=== PATIENT | female | born 1960 | race Caucasian/White ===

== ENCOUNTER → 2017-01-05 | Outpatient (CLI) | payer BC ==
[~2017-01-05] MED LIST: ASPI1TAB83 PO; CALC-354 PO; CYM/30 PO; DICL50TA3 PO; FEXO1TAB46 PO; GABA1CAP PO; NRN/600 PO
--- NOTE | 2017-01-06 12:38 | MAMMOGRAPHY REPORT ---
BILATERAL DIGITAL SCREENING MAMMOGRAM TOMOSYNTHESIS WITH CAD: 01/05/2017 CLINICAL HISTORY: Routine screening. Patient has no complaints. TECHNIQUE: Breast tomosynthesis in addition to standard 2D mammography was performed. Current study was also evaluated with a Computer Aided Detection (CAD) system. COMPARISON: Comparison is made to exams dated: 01/05/2016 mammogram, 01/01/2015 mammogram, 12/24/2013 ma mmogram, 09/28/2012 mammogram, 09/30/2011 mammogram, and 09/28/2011 mammogram - [facility] nter. BREAST COMPOSITION: There are scattered areas of fibroglandular density in both breasts. FINDINGS: The breast parenchymal pattern is similar to prior mammograms. No new suspicious mass, arc hitectural distortion or cluster of microcalcifications is seen. IMPRESSION: ACR BI-RADS CATEGORY 1: NEGATIVE There is no mammographic evidence of malignancy. A 1 year screening mammogram is recommended. The pa tient will receive written notification of the results. Approximately 10% of breast cancers are not detected with mammography. A negative mammographic report should not delay biopsy if a clinically suggestive mass is present. Jacey Howell M.D. ay/:01/05/2017 15:37:26 Target Trimmer: Bernice Wright, [facility] letter sent: Normal 1/2 BI-RADS Code: ACR BI-RADS Category 1: Negative
== END | disposition home or self-care (01) ==
LOC: C.MAMM 15:12
PROVIDERS: ATTEND Nurse Practitioner Family
DX: Z12.31 Encounter for screening mammogram for malignant neoplasm of breast (principal)

== ENCOUNTER → 2017-03-08 | Outpatient (CLI) | payer BC ==
[2017-03-08 12:57] LABS: BLOOD UREA NITROGEN 15 mg/dl (7-18); BUN/CREATININE RATIO 17.6 (10-20); CALCIUM 9.3 mg/dl (8.5-10.1); CARBON DIOXIDE 27 mmol/L (21-32); CHLORIDE 105 mmol/L (98-107); CREATININE 0.83 mg/dl (0.60-1.20); GLUCOSE 106 mg/dl (70-99); POTASSIUM 4.1 mmol/L (3.5-5.1); SODIUM 138 mmol/L (136-145)
[2017-03-08 13:07] LABS: CHOLESTEROL 232 mg/dl (0-200); CHOLESTEROL/HDL RATIO 3.3; HDL CHOLESTEROL 71 mg/dl; LDL CHOLESTEROL CALCULATED 145 mg/dl; TRIGLYCERIDES 82 mg/dl (0-150); VERY LOW DENSITY LIPOPROT CALC 16 mg/dl
== END | disposition home or self-care (01) ==
LOC: C.LABPVFM 07:29
PROVIDERS: ATTEND Nurse Practitioner Family
DX: Z13.220 Encounter for screening for lipoid disorders (principal); R73.01 Impaired fasting glucose; F41.9 Anxiety disorder, unspecified

== ENCOUNTER 2024-10-26 08:56 | Observation (INO) ==
--- NOTE | 2024-10-09 16:03 | PAT Medication Instructions ---
Medication Instructions Date of Service October 09, 2024 Home Medications Medication Instructions Recorded venlafaxine 75 mg capsule,extended 75 mg PO QAM #90 caps 01/23/24 release 24 hr buspirone 5 mg tablet 5 mg PO DAILY #30 tabs 04/30/24 chlorthalidone 25 mg tablet 25 mg PO QAM #90 tabs 05/09/24 diclofenac sodium 50 mg 50 mg PO DAILY #180 tabs 06/15/24 tablet,delayed release trazodone 50 mg tablet 50 - 100 mg (1 - 2 x 50 mg) PO HS 06/15/24 #180 tabs atorvastatin 10 mg tablet 10 mg PO QAM #90 tabs 06/25/24 venlafaxine 150 mg 150 mg PO QAM #90 caps 08/01/24 capsule,extended release 24 hr amlodipine 5 mg tablet 5 mg PO QAM #90 tabs 08/03/24 lidocaine 5 % topical patch 1 patch topical DAILY PRN pain #15 09/11/24 ea diazepam 5 mg tablet 5 mg PO .COMPLEX PRN anxiety #3 09/20/24 tabs pregabalin 100 mg capsule 100 mg PO BID #60 caps 09/20/24 aspirin 81 mg tablet 81 mg PO HS calcium carbonate 600 mg PO HS biotin 5,000 mcg disintegrating tablet 10,000 mcg PO QPM gingkgo 1 cap PO QPM cholecalciferol (vitamin D3) 125 mcg (5,000 unit) tablet (Vitamin D3) 125 mcg PO DAILY fexofenadine 180 mg tablet 180 mg PO QAM omeprazole 20 mg tablet,delayed release 20 mg PO QAM venlafaxine 75 mg capsule,extended release 24 hr 75 mg PO QAM clotrimazole-betamethasone 1 %-0.05 % topical cream 1 applic topical BID PRN buspirone 5 mg tablet 5 mg PO DAILY chlorthalidone 25 mg tablet 25 mg PO QAM diclofenac sodium 50 mg tablet,delayed release 50 mg PO DAILY trazodone 50 mg tablet 50 - 100 mg (1 - 2 x 50 mg) PO HS atorvastatin 10 mg tablet 10 mg PO QAM venlafaxine 150 mg capsule,extended release 24 hr 150 mg PO QAM amlodipine 5 mg tablet 5 mg PO QAM gabapentin 100 mg capsule 200 mg PO QAM gabapentin 600 mg tablet 600 mg PO DAILY PRN lidocaine 5 % topical patch 1 patch topical DAILY PRN diazepam 5 mg tablet 5 mg PO .COMPLEX PRN pregabalin 100 mg capsule 100 mg PO BID Continue as directed buspirone 5 mg tablet 5 mg PO DAILY gabapentin 600 mg tablet 600 mg PO DAILY PRN(if needed) diazepam 5 mg tablet 5 mg PO .COMPLEX PRN ASK your surgeon for instructions diclofenac sodium 50 mg tablet,delayed release 50 mg PO DAILY ASK your prescriber and surgeon aspirin 81 mg tablet 81 mg PO HS lidocaine 5 % topical patch 1 patch topical DAILY PRN (do NOT apply on or near surgical site) STOP taking 2 weeks before surgery (or as soon as possible if surgery is within 2 weeks) biotin 5,000 mcg disintegrating tablet 10,000 mcg PO QPM gingkgo 1 cap PO QPM STOP taking 24 hours before surgery clotrimazole-betamethasone 1 %-0.05 % topical cream 1 applic topical BID PRN DO NOT take the morning of surgery cholecalciferol (vitamin D3) 125 mcg (5,000 unit) tablet (Vitamin D3) 125 mcg PO DAILY fexofenadine 180 mg tablet 180 mg PO QAM chlorthalidone 25 mg tablet 25 mg PO QAM Take morning of surgery With a small sip of water, OTHERWISE NOTHING TO EAT OR DRINK AFTER MIDNIGHT: omeprazole 20 mg tablet,delayed release 20 mg PO QAM venlafaxine 75 mg capsule,extended release 24 hr 75 mg PO QAM atorvastatin 10 mg tablet 10 mg PO QAM venlafaxine 150 mg capsule,extended release 24 hr 150 mg PO QAM amlodipine 5 mg tablet 5 mg PO QAM gabapentin 100 mg capsule 200 mg PO QAM pregabalin 100 mg capsule 100 mg PO BID Take evening before surgery calcium carbonate 600 mg PO HS trazodone 50 mg tablet 50 - 100 mg (1 - 2 x 50 mg) PO HS pregabalin 100 mg capsule 100 mg PO BID Other Notes If you have any questions please call us at [phone] or [phone] or [phone] or [phone]
--- NOTE | 2024-10-12 10:56 | Anesthesiology Consultation ---
Date of Service October 12, 2024 Assessment & Plan (1) Encounter for pre-operative examination: Chart Review Chart Review: Acceptable Risk for Surgery and Patient seen in Pre Admission Testing Teaching & Discussion Pre-Anesthesia Teaching/Discussion Notes: Instructed NPO after midnight before surgery, except medications with 15 cc of water. Medication instructions provided according to the PAT guidelines. History Surgery Operation Date: 10/26/24 10:00 Proposed Procedures p L2-L3, L3-L4 Laminectomies - Zachary Latham MD Height/Weight Height: 5 ft 6 in Weight: 87.3 kg Allergies Allergy/AdvReac Type Severity Reaction Status Date / Time No Known Allergies Allergy Verified 10/09/24 14:52 Medications Home Medications Medication Instructions Recorded Confirmed Last Taken aspirin 81 mg tablet 81 mg PO HS 04/03/19 10/09/24 09/10/24 17:00 calcium carbonate 600 mg PO HS 04/03/19 10/09/24 09/10/24 17:00 biotin 5,000 mcg disintegrating 10,000 mcg PO QPM 03/27/21 10/09/24 09/10/24 17:00 tablet gingkgo 1 cap PO QPM 07/01/23 10/09/24 09/10/24 17:00 cholecalciferol (vitamin D3) 125 125 mcg PO DAILY 09/26/23 10/09/24 09/10/24 17:00 mcg (5,000 unit) tablet (Vitamin D3) fexofenadine 180 mg tablet 180 mg PO QAM 09/26/23 10/09/24 09/11/24 07:00 omeprazole 20 mg tablet,delayed 20 mg PO QAM 09/26/23 10/09/24 09/11/24 07:00 release venlafaxine 75 mg capsule,extended 75 mg PO QAM #90 caps 01/23/24 10/09/24 09/11/24 07:00 release 24 hr clotrimazole-betamethasone 1 1 applic topical BID PRN Rash 03/28/24 10/09/24 Unknown %-0.05 % topical cream chlorthalidone 25 mg tablet 25 mg PO QAM #90 tabs 05/09/24 10/09/24 09/11/24 07:00 diclofenac sodium 50 mg 50 mg PO DAILY #180 tabs 06/15/24 10/09/24 09/11/24 07:00 tablet,delayed release trazodone 50 mg tablet 50 - 100 mg (1 - 2 x 50 mg) PO HS 06/15/24 10/09/24 09/10/24 19:00 #180 tabs atorvastatin 10 mg tablet 10 mg PO QAM #90 tabs 06/25/24 10/09/24 09/11/24 07:00 venlafaxine 150 mg 150 mg PO QAM #90 caps 08/01/24 10/09/24 09/11/24 07:00 capsule,extended release 24 hr amlodipine 5 mg tablet 5 mg PO QAM #90 tabs 08/03/24 10/09/24 09/11/24 07:00 gabapentin 100 mg capsule 200 mg PO QAM 09/11/24 10/09/24 Unknown gabapentin 600 mg tablet 600 mg PO DAILY PRN Pain (Scale 09/11/24 10/09/24 12:00 Score 1-3) lidocaine 5 % topical patch 1 patch topical DAILY PRN pain #15 09/11/24 10/09/24 Unknown ea diazepam 5 mg tablet 5 mg PO .COMPLEX PRN anxiety #3 09/20/24 10/09/24 Unknown tabs pregabalin 100 mg capsule 100 mg PO BID #60 caps 09/20/24 10/09/24 Unknown buspirone 5 mg tablet 5 mg PO DAILY #30 tabs 10/12/24 Unknown Past Medical History Medical History Allergic rhinitis Anxiety Arthritis Depression Difficult intravenous access Dyslipidemia GERD (gastroesophageal reflux disease) controlled, stable per pt HTN (hypertension) controlled, stable per pt Lumbar degenerative disc disease Lumbar radiculopathy Lumbar spondylosis Paresthesia of right lower extremity Prediabetes denies/ not aware Spinal stenosis Patient denies h/o stroke, seizures, heart attack, heart failure, blood clots/DVTs or blood transfusions. Exercise / Class Metabolic Activity II 4-5 Yardwork/Stairs/Walk up hill (denies chest discomfort or shortness of breath with one flight of stairs) Past Family History Family History Sister Breast cancer Other No family history of adverse response to anesthesia Denies family history of Ovarian cancer Prostate cancer Myocardial infarction Colorectal cancer Past Surgical History Surgical History History of arthroscopic knee surgery left/right History of carpal tunnel surgery (2008) left/right History of colonoscopy History of left knee replacement (2010) History of lumbar surgery lumbar laminectomy x 3 *no hardware (last one in 1994) History of sinus surgery (1999) History of total abdominal hysterectomy Past Anesthesia History No Hx of Anesthesia Complications and No Family Hx of Anesthesia Complications History of PONV No Hx of PONV and No Hx of Motion Sickness Social History Smoking Status: Never smoker Do You Dip or Chew Tobacco: No Hx Alcohol Use: Yes alcohol intake frequency: holidays/special occasions only Hx Substance Use: No substance use type: does not use Review of Systems Snoring, denies witnessed apneas. Patient denies chest pain, shortness of breath, dyspnea on exertion, fever, chills, cough, wheezing, or palpitations. Physical Exam Vital Signs Vitals BP 138/78 P 64 TEMP 97.7 SP02 94% on RA RESP 18 Physical Patient resting comfortably in chair in no acute distress, alert and oriented, responding appropriately throughout visit Full cervical extension range of motion without pain TMD 3.5 finger breadths Mallampati Score 2 Dentition: intact, denies chipped or loose teeth, caps/crowns, implants or bridges Lungs: normal respiratory effort. Good air movement, clear throughout to auscultation, no adventitious breath sounds Cardiac: regular rate and rhythm, no murmurs noted Carotid arteries: negative bruit bilat Lab Results Anesthesia Preop Results Results Anesthesia Widget: WBC 8.25 K/ul (4.8-10.8) 09/11/24 Hgb 13.7 g/dl (12.0-16.0) 09/11/24 Hct 40.1 % (37.0-47.0) 09/11/24 Plt 261 K/uL (130-400) 09/11/24 Na 140 mmol/L (136-145) 09/11/24 K 3.7 mmol/L (3.5-5.1) 09/11/24 Cl 100 mmol/L (98-107) 09/11/24 CO2 30 mmol/L (21-32) 09/11/24 BUN 13 mg/dl (6-23) 09/11/24 Creat 0.80 mg/dl (0.6-1.2) 09/11/24 Glucose Level 88 mg/dl (70-99(Fasting)) 09/11/24 PT 10.3 Seconds (9.0-12.0) 10/12/24 PTT 26 Seconds (21-31) 10/12/24 INR 0.9 (0.9-1.1) 10/12/24 HA1c 5.7 % (4.5-5.6) H 10/12/24 Blood Type A Positive 10/12/24 Antibody Screen NEGATIVE 10/12/24 Testing Electrocardiogram Date: 10/12/24 NSR, rate 66 bpm Chest X-Ray Date: 10/12/24 There is mild cardiomegaly without pulmonary vascular congestion. No consolidation or pleural effusion. IMPRESSION: No acute findings.
[2024-10-26] MEDS ORDERED: ATROPINE SULFATE 0.1 MG/ML 10ML SYR IV PRN (09:16)
[2024-10-26] MEDS ORDERED: ONDANSETRON INJ 2 MG/ML 2 ML VIAL IV PRN ×2 (09:16→16:50)
[2024-10-26] MEDS ORDERED: HYDROmorphone INJ 2 MG/ML SYR/VIAL IV PRN (09:16)
[2024-10-26] MEDS: ACETAMINOPHEN 500 MG TAB PO SCH (09:43)
[2024-10-26] MEDS: LR 15ML/HR IV SCH (09:44)
[2024-10-26] MEDS: LR 60ML/HR IV SCH (09:44)
[2024-10-26] MEDS ORDERED: MIDAZOLAM HCL 1 MG/ML 2ML VIAL ONE (11:41)
[2024-10-26] MEDS ORDERED: LIDOCAINE 2% 2 ML VIAL/AMP(20MG/ML) INFIL ONE (11:41)
[2024-10-26] MEDS ORDERED: ROCURONIUM BROMIDE 10 MG/ML 5 ML VIAL IV ONE (11:42)
[2024-10-26] MEDS ORDERED: PROPOFOL IV EMULSION 10 MG/ML 20 ML VIAL IV ONE (11:42)
--- NOTE | 2024-10-26 11:47 | History & Physical Bridge Note ---
Date of Service October 26, 2024 History & Physical Bridge Note I have examined the patient, reviewed the History & Physical and in the interval since the performance of the History & Physical I have noted the following changes of clinical significance: no changes noted Plan for L2-3, L3-4
[2024-10-26] MEDS ORDERED: KETAMINE HCL 10MG/ML SYR ONE (13:22)
[2024-10-26] MEDS ORDERED: HYDROmorphone INJ 2 MG/ML SYR/VIAL ONE (13:30)
[2024-10-26] MEDS ORDERED: ONDANSETRON INJ 2 MG/ML 2 ML VIAL ONE (13:30)
[2024-10-26] MEDS ORDERED: DEXAMETHASONE SOD INJ 4 MG/ML VIAL ONE (13:30)
[2024-10-26] MEDS: VANCOMYCIN HCL 1000MG/20ML VIAL ONE (13:46)
[2024-10-26] MEDS: GELATIN SPONGE SZ 100 ONE (14:39)
[2024-10-26] MEDS: FLOSEAL HEMOSTATIC MATRIX 10ML TOP ONE (14:39)
[2024-10-26] MEDS: BUPIVACAINE 0.5 % 5 MG/1 ML MPF 30ML VIAL ONE (14:50)
[2024-10-26] MEDS ORDERED: SUGAMMADEX SODIUM 200 MG/2 ML VIAL IV ONE (14:55)
--- NOTE | 2024-10-26 15:13 | Post Operative Brief Note ---
PG Immediate Post Op with CF Date of Surgery October 26, 2024 Pre & Post Diagnosis Operation Date: 10/26/24 10:00 Pre-Op Diagnosis: 1. Lumbar Stenosis Without Neurogenic Claudication 2. Lumbar Radiculopathy 3. Lumbar Spondylosis 4. Lumbar Degenerative Disc Disease Post-Op Diagnosis: 1. Lumbar Stenosis Without Neurogenic Claudication 2. Lumbar Radiculopathy 3. Lumbar Spondylosis 4. Lumbar Degenerative Disc Disease I identified the patient and participated in the time-out.: Yes Procedure Operation Date: 10/26/24 10:00 Actual Procedures p L2-L3, L3-L4 Laminectomies(Not Applicable) - Zachary Latham MD Surgeon Zachary Latham MD Coal Drier Operator Stan Kat Estimated Blood Loss 50 Findings See Below Incidental durotomy, right L3-4 level, repaired with one suture and duraseal. Specimens Specimen Description: No specimen per surgeon Drains Clifton Catheter (Inserted at end of procedure) Anesthesia Type General Complications none Disposition Disposition: Recovery Room
--- NOTE | 2024-10-26 15:25 | Operative Report ---
PG Post Operative Report Pre & Post Diagnosis Operation Date: 10/26/24 10:00 Pre-Op Diagnosis: 1. Lumbar Stenosis Without Neurogenic Claudication 2. Lumbar Radiculopathy 3. Lumbar Spondylosis 4. Lumbar Degenerative Disc Disease Post-Op Diagnosis: 1. Lumbar Stenosis Without Neurogenic Claudication 2. Lumbar Radiculopathy 3. Lumbar Spondylosis 4. Lumbar Degenerative Disc Disease I identified the patient and participated in the time-out.: Yes Procedure Operation Date: 10/26/24 10:00 Actual Procedures p L2-L3, L3-L4 Laminectomies (81822, [id number]) - Zachary Latham MD Surgeon Zachary Latham MD Locator Specialist Stan Kat Estimated Blood Loss 50 Findings Consistent with Post-Op Diagnosis Specimens No Drains No Anesthesia Type General Complications none Disposition Disposition: Recovery Room Indications Patient was met in the clinic setting where she had intractable lumbar radiculopathy. She has failed conservative management, imaging revealed severe central canal lateral recess stenosis at L2-3 and L3-4. Risks and benefits of surgery versus conservative measures or epidural injections were discussed, patient elected to proceed with surgery. Description of Procedure Patient was brought to the operating room where general anesthesia was induced. She was placed in the prone position on Brian spine table with Vin frame. All bony prominences were padded, she was prepped and draped in the usual sterile fashion. Verbal timeout was performed identifying the patient by name date of and verifying the correct procedure. All were in agreement so I like to proceed. I was able to use her prior lumbar incision for localization. I extended the incision superiorly after marking the levels with fluoroscopy. Skin was incised with 10 blade scalpel, Bovie electrocautery was used to dissect down to the lumbodorsal fascia, subperiosteal dissection was carried out to expose the lamina of L2 and L3 bilaterally. Significant scar tissue had formed from her prior surgery at the L4 level and extended up over the L3 lamina, this was removed. Penetrating towel clips were placed into the spinous processes of L2 and L3 and fluoroscopy used to verify the correct levels. Spinous process of L3 was removed with Leksell rongeur. High-speed bur was used to thin the lamina and then removed with a Kerrison to expose the ligamentum flavum. Ligamentum flavum was split with a nerve hook, remaining ligament between L3 and L4 was then removed using Kerrison rongeur and a [place] elevator to protect the dura. There was severe facet arthropathy bilaterally contributing to the lateral recess stenosis. Nerve hook was used to elevate scar tissue off of the dura, Dimitri elevator used to protect the dura, I was able to easily remove the osteophytes from the left L3-4 facet joint providing excellent decompression of the traversing L4 nerve root. On the right the dura was tightly adherent to the facet joint with scar tissue. This was dissected off and the medial facet joint was undercut. This point I noted weakening of the dura at that level, durotomy was noted with an intact arachnoid layer. Decision was made to place a suture into the dura to reinforce that level, DuraGen was placed over the defect on the lateral aspect of the dura, DuraSeal placed over that. Multiple Valsalva maneuvers were performed with no visible extravasation of CSF. Spinous process of L2 was then removed with Leksell rongeur. Once again high- speed bur was used to thin the lamina, the remaining lamina bone was removed using a Kerrison punch. Ligamentum flavum between L2 and L3 was identified, the ligament was split midline with a nerve hook. Dimitri elevator was used to protect the dura and the ligamentum flavum was removed with Kerrison rongeur. I again noted severe facet arthropathy contributing to lateral recess stenosis. A t that point I used a [place] to protect the dura and undercut the medial facet joints bilaterally to provide excellent decompression of the central canal and traversing nerve roots at the L2-3 level. Excellent hemostasis was obtained, there was no active bleeding so decision was made not to place a drain vancomycin powder was placed along the wound edges. Fascia was closed with a running STRATAFIX suture. Watertight closure was achieved, subcutaneous layer was closed with Vicryl with guevara skin. Sterile dressing was applied. Patient was transferred to PACU in stable condition. Postoperative plan: Will continue with 24 hours of perioperative antibiotics. I discussed with the patient's family the dural repair that was performed, no active extravasation of CSF, I will keep on flat overnight so a Clifton catheter was placed, we will begin to elevate her slowly tomorrow afternoon. She does not have a significant headache we will advance activity as tolerated. I attest to the content of the Intraoperative Record and any orders documented therein. Any exceptions are noted below.
[2024-10-26] MEDS: HYDROmorphone INJ 1 MG/ML SYRINGE IV PRN ×2 (15:45→18:07)
--- NOTE | 2024-10-26 15:51 | Fluoroscopy Report ---
INTRAOPERATIVE RADIOGRAPHS CLINICAL HISTORY: L2-L3 and L3-L4 laminectomy. Fluoro time: 6 seconds Ka,r: 3.31 mGy FINDINGS: A single spot fluoroscopic view of the lumbar spine is presented. Surgical implement projec ever posteriorly at the L2-L3 and L3-L4 disc spaces. IMPRESSION: Intraoperative image from a lumbar spinal surgical procedure as above. Electronically signed by: Zachary Perez M.D. 10/26/2024 3:49 PM
[2024-10-26] MEDS ORDERED: LORazepam 0.5 MG TAB PO PRN (16:50)
[2024-10-26] MEDS ORDERED: diphenhydrAMINE Capsule 25 MG CAP PO PRN (16:50)
[2024-10-26] MEDS ORDERED: ONDANSETRON 4 MG OD TAB PO PRN (16:50)
[2024-10-26] MEDS ORDERED: NALOXONE HCL 0.4 MG/1 ML VIAL/CARP IV PRN (16:50)
[2024-10-26] MEDS ORDERED: DO NOT ADMINISTER FLU VACCINE PRN (16:50)
[2024-10-26] MEDS ORDERED: ACETAMINOPHEN 1,000 MG/100 ML VIAL IV PRN (16:50)
[2024-10-26] MEDS ORDERED: HYDROmorphone INJ 0.5 MG/0.5 ML SYR IV PRN (16:50)
[2024-10-26] MEDS ORDERED: DO NOT ADMINISTER PNEUMOCOCCAL VACCINE PRN (16:50)
[2024-10-26] MEDS ORDERED: PROMETHAZINE 12.5 MG/50.5 ML BAG IV PRN (16:50)
[2024-10-26] MEDS ORDERED: SOD PHOSPHATE/SOD BIPHOSPHATE ENEMA 132 ML BTL PR PRN (16:50)
[2024-10-26] MEDS ORDERED: ACETAMINOPHEN 500 MG TAB PO PRN (16:50)
[2024-10-26] MEDS ORDERED: MAGNESIUM HYDROXIDE SUSP 30 ML UDC PO PRN (16:50)
[2024-10-26] MEDS ORDERED: ALUMINUM/MAGNESIUM SUSP 30 ML UDC PO PRN (16:50)
[2024-10-26] MEDS: LACTATED RINGER'S 1,000 ML IV SCH (17:31)
[2024-10-26] MEDS: dexAMETHasone 6 MG in SYRINGE 0 ML IV SCH (17:31)
--- NOTE | 2024-10-26 18:18 | Hospitalist Consultation ---
Date of Consultation October 26, 2024 Assessment & Plan (1) Lumbar stenosis without neurogenic claudication: The patient underwent elective L234 lumbar laminectomy earlier today by Dr. Latham. Management per surgical team (2) Hypertension: Currently stable on amlodipine and chlorthalidone (3) Depression: Currently stable on BuSpar and Effexor (4) Dyslipidemia: Currently stable on a atorvastatin Plan The medical team will see the patient on a daily basis and manage the medical problems until she is discharged by the primary surgical team History of Present Illness Reason for Consultation: Postoperative medical management Requesting Physician: Dr. Zachary Latham Attending Physician: Zachary Latham MD History of Present Illness 64-year-old white female who underwent elective L234 lumbar laminectomy earlier today for lumbar stenosis with radiculopathy and associated degenerative disc disease. She was seen postoperatively for medical management. Currently stable vital signs and afebrile. Preoperative EKG is unremarkable. Preoperative chest x-ray is unremarkable. Allergies Allergy/AdvReac Type Severity Reaction Status Date / Time No Known Allergies Allergy Verified 10/26/24 09:06 Home Medications Medication Instructions Recorded Confirmed Type aspirin 81 mg tablet 81 mg PO HS 04/03/19 10/26/24 History calcium carbonate 600 mg PO HS 04/03/19 10/26/24 History gingkgo 1 cap PO QPM 07/01/23 10/26/24 History fexofenadine 180 mg tablet 180 mg PO QAM 09/26/23 10/26/24 History omeprazole 20 mg tablet,delayed 20 mg PO QAM 09/26/23 10/26/24 History release venlafaxine 75 mg capsule,extended 75 mg PO QAM #90 caps 01/23/24 10/26/24 Rx release 24 hr clotrimazole-betamethasone 1 1 applic topical BID PRN Rash 03/28/24 10/26/24 History %-0.05 % topical cream chlorthalidone 25 mg tablet 25 mg PO QAM #90 tabs 05/09/24 10/26/24 Rx diclofenac sodium 50 mg 50 mg PO DAILY #180 tabs 06/15/24 10/26/24 Rx tablet,delayed release trazodone 50 mg tablet 50 - 100 mg (1 - 2 x 50 mg) PO HS 06/15/24 10/26/24 Rx #180 tabs atorvastatin 10 mg tablet 10 mg PO QAM #90 tabs 06/25/24 10/26/24 Rx venlafaxine 150 mg 150 mg PO QAM #90 caps 08/01/24 10/26/24 Rx capsule,extended release 24 hr amlodipine 5 mg tablet 5 mg PO QAM #90 tabs 08/03/24 10/26/24 Rx lidocaine 5 % topical patch 1 patch topical DAILY PRN pain #15 09/11/24 10/26/24 Rx ea buspirone 5 mg tablet 5 mg PO DAILY #30 tabs 10/12/24 10/26/24 Rx biotin 5,000 mcg disintegrating 5,000 mcg PO QPM 10/17/24 10/26/24 History tablet cholecalciferol (vitamin D3) 125 250 mcg PO DAILY 10/17/24 10/26/24 History mcg (5,000 unit) tablet (Vitamin D3) gabapentin 600 mg tablet 600 mg PO BID PRN Pain (Scale 10/17/24 10/26/24 History Score 1-3) pregabalin 100 mg capsule 100 mg PO BID 10/17/24 10/26/24 History Patient History Medical History Allergic rhinitis Anxiety Arthritis Depression Difficult intravenous access Dyslipidemia GERD (gastroesophageal reflux disease) controlled, stable per pt HTN (hypertension) controlled, stable per pt Lumbar degenerative disc disease Lumbar radiculopathy Lumbar spondylosis Paresthesia of right lower extremity Prediabetes denies/ not aware Spinal stenosis Surgical History History of lumbar surgery History of colonoscopy History of total abdominal hysterectomy History of sinus surgery (1999) History of carpal tunnel surgery (2008) History of arthroscopic knee surgery History of left knee replacement (2010) Family History Sister Breast cancer Other No family history of adverse response to anesthesia Denies family history of Ovarian cancer Prostate cancer Myocardial infarction Colorectal cancer Social History Smoking Status: Never smoker Second Hand Exposure: No; Do You Dip or Chew Tobacco: No; Tobacco Cessation Education Requested by Patient: No Hx Alcohol Use: Yes Alcohol Intake Frequency: Monthly or Less Hx Substance Use: No Preferred Language: Singaporean Communication Ability: Effective Visual Impairment: Partially Limited Hearing Ability: Normal Mobile Device Developer Required: No Beliefs That Will Affect Care: None marital status: Current Living Situation: Spouse current occupational status: retired current occupation: retired from [employer] How many Children do You have: 4 Other Information That Helps Us Care for You: No Feels Safe at Home: Yes Safety Concerns: Feels Safe At This Time Diet: regular Diet Comment: regular caffeine: Yes during the past year weight has: remained stable Dental Care, Regularly: Yes Physical Activity Frequency: Daily Seatbelt Use: always Sunscreen Use: No Assistive Devices: Glasses Review of Systems Review of Systems: Constitutionalno fever or chills ENTno blurred vision, no double vision, no epistaxis, no sore throat Respiratoryno cough, no wheezing, no shortness of breath Cardiacno palpitations, no chest pain, no syncope Karla nausea, vomiting, diarrhea, melena, hematochezia GUno urinary retention, no urinary incontinence, no dysuria, no hematuria Musculoskeletalno joint pain, no muscle tenderness. Postoperative lumbar discomfort as expected Skinno bruising, no rashes, no pruritus Neurono isolated weakness, no paresthesia, no weakness Psychno depression, no anxiety Physical Exam Physical Exam: General-alert and oriented x3, no fever, no chills HEENT-head atraumatic and normocephalic, pupils equal and reactive to light, extraocular muscles intact Neck-no lymphadenopathy or thyromegaly, trachea midline Chest-clear to auscultation. No rales, wheezing or rhonchi Cardiac-regular rate and rhythm, normal S1 and S2 Abdomen-normal bowel sounds, no hepatosplenomegaly Extremities-no cyanosis, clubbing, or edema. The patient is lying supine in bed and was not rolled over and her lumbar spine area was not examined Neuro-cranial nerves II through XII intact, motor and sensory function within normal limits, strength symmetrical, no focal deficits Psych-normal affect, normal mood Results & Data Results & Data Vital Signs (Past 12 Hours) Vital Signs Temp Pulse Pulse Resp BP Pulse Ox O2 Del Method 10/26/24 17:50 87 16 104/61 94 Nasal Cannula 10/26/24 17:43 Nasal Cannula 10/26/24 17:20 86 16 105/64 94 Nasal Cannula 10/26/24 16:50 36.5 C 86 14 128/60 93 Nasal Cannula 10/26/24 16:30 88 14 121/65 97 Nasal Cannula 10/26/24 16:15 86 14 118/61 94 Nasal Cannula 10/26/24 16:05 36.4 C L 86 17 121/61 96 Nasal Cannula 10/26/24 15:55 87 12 123/62 99 Oxymask 10/26/24 15:45 87 19 144/74 H 95 Oxymask 10/26/24 15:35 87 19 140/73 95 Oxymask 10/26/24 15:25 90 13 150/78 H 97 Oxymask 10/26/24 15:16 36 C L 88 13 150/80 H 94 Oxymask 10/26/24 09:22 36.7 C 74 20 167/91 H 95 Room Air O2 Flow Rate 10/26/24 17:50 2 10/26/24 17:43 2 10/26/24 17:20 3 10/26/24 16:50 3 10/26/24 16:30 3 10/26/24 16:15 3 10/26/24 16:05 3 10/26/24 15:55 4 10/26/24 15:45 4 10/26/24 15:35 6 10/26/24 15:25 6 10/26/24 15:16 10 10/26/24 09:22 Laboratory Results Preoperative labs are unremarkable. Preoperative EKG and chest x-ray unremarkable PG Care Time/CCT Total # of Minutes Spent Total Time Spent with Patient: Total time spent is greater than 50% in coordination of care (as documented) at patient's floor/unit and/or counseling patient: Coding Level of Care Code 45776 IN/OBS CONSULT LVL 4,60M Diagnoses Lumbar stenosis without neurogenic claudication M48.061 Hypertension I10 Depression F32.9 Dyslipidemia E78.5
--- NOTE | 2024-10-26 19:55 | Anesthesiology Progress Note ---
Date of Service October 26, 2024 Anesthesia Post Procedure Vital Signs Vital Signs: Temp Pulse Pulse Resp BP Pulse Ox O2 Del Method 10/26/24 18:49 36.5 C 90 16 100/61 96 Nasal Cannula 10/26/24 17:50 87 16 104/61 94 Nasal Cannula 10/26/24 17:43 Nasal Cannula 10/26/24 17:20 86 16 105/64 94 Nasal Cannula 10/26/24 16:50 36.5 C 86 14 128/60 93 Nasal Cannula 10/26/24 16:30 88 14 121/65 97 Nasal Cannula 10/26/24 16:15 86 14 118/61 94 Nasal Cannula 10/26/24 16:05 36.4 C L 86 17 121/61 96 Nasal Cannula 10/26/24 15:55 87 12 123/62 99 Oxymask 10/26/24 15:45 87 19 144/74 H 95 Oxymask 10/26/24 15:35 87 19 140/73 95 Oxymask 10/26/24 15:25 90 13 150/78 H 97 Oxymask 10/26/24 15:16 36 C L 88 13 150/80 H 94 Oxymask 10/26/24 09:22 36.7 C 74 20 167/91 H 95 Room Air O2 Flow Rate 10/26/24 18:49 2 10/26/24 17:50 2 10/26/24 17:43 2 10/26/24 17:20 3 10/26/24 16:50 3 10/26/24 16:30 3 10/26/24 16:15 3 10/26/24 16:05 3 10/26/24 15:55 4 10/26/24 15:45 4 10/26/24 15:35 6 10/26/24 15:25 6 10/26/24 15:16 10 10/26/24 09:22 Pain Intensity Back: Pain Intensity: 5 Transfer of Care Handoff Completed per policy Notes Mental Status: alert / awake / arousable Patient Amnestic to Procedure: Yes Nausea / Vomiting: adequately controlled Pain: adequately controlled Airway Patency, RR, SpO2: stable & adequate BP & HR: stable & adequate Hydration State: stable & adequate Anesthetic Complications: no major complications apparent
[2024-10-26] MEDS: PREGABALIN 100 MG CAP PO SCH (21:57)
[2024-10-26] MEDS: DOCUSATE SODIUM/SENNA 50/8.6MG TAB PO SCH (21:57)
[2024-10-26] MEDS: CALCIUM CARBONATE 1250MG TAB PO SCH (21:59)
[2024-10-26] MEDS: ASPIRIN 81 MG ECTAB PO SCH (21:59)
[2024-10-27 03:12] VITALS: RESP 16
[2024-10-27] MEDS: POLYETHYLENE (MIRALAX) 17 GM PACK PO SCH (05:45)
[2024-10-27] MEDS: VENLAFAXINE HCL XR 150 MG CAPXR PO SCH (08:28)
[2024-10-27] MEDS: FEXOFENADINE HCL 180 MG TAB PO SCH (08:28)
[2024-10-27] MEDS: VENLAFAXINE HCL XR 75 MG CAPXR PO SCH (08:29)
[2024-10-27] MEDS: CHOLECALCIFEROL 125 MCG (5,000 UNITS) TAB PO SCH (08:29)
[2024-10-27] MEDS: CHLORTHALIDONE 25 MG TAB PO SCH (08:29)
[2024-10-27] MEDS: ATORVASTATIN 10 MG TAB PO SCH (08:36)
[2024-10-27] MEDS: busPIRone 5 MG TAB PO SCH ×2 (08:40→20:21)
--- NOTE | 2024-10-27 10:04 | Orthopedic Progress Note ---
Date of Service October 27, 2024 Assessment & Plan (1) S/P laminectomy: (2) Lumbar stenosis without neurogenic claudication: Subjective s/p Lumbar decompression, dural repair. No headaches overnight, difficult to eat while laying flat on bed rest. Pain controlled this AM, she reports started getting some lateral calf pain this morning, improved with position change. ALE overnight Review of Systems All systems reviewed & are unremarkable except as noted in HPI & below. Physical Exam 5/5 strength in bilateral LE L2-S1 myotomes SILT L2-S1 dermatomes, some paresthesias right L5 Dressing c/d/i Results & Data Results & Data Laboratory Results . Diagnostic Findings . PG Care Time/CCT Total # of Minutes Spent Total Time Spent with Patient: Total time spent is greater than 50% in coordination of care (as documented) at patient's floor/unit and/or counseling patient: Coding Level of Care Code 87305 Post Operative Follow-Up Diagnoses S/P laminectomy Z98.890 Lumbar stenosis without neurogenic claudication M48.061
[2024-10-27] MEDS ORDERED: Nursing to Pharmacy Communication SCH (10:15)
--- NOTE | 2024-10-27 10:35 | Hospitalist Progress Note ---
Date of Service October 27, 2024 Assessment & Plan (1) Lumbar stenosis without neurogenic claudication: Plan: The patient underwent elective L234 lumbar laminectomy on October [address] Latham. Postoperative day #1. Management per surgical team (2) Hypertension: Plan: Currently stable on amlodipine and chlorthalidone (3) Depression: Plan: Currently stable on BuSpar and Effexor (4) Dyslipidemia: Plan: Currently stable on a atorvastatin (5) Hypoxia: Plan: Mild postoperative hypoxia probably due to residual pulmonary atelectasis. Incentive spirometry ordered. Wean oxygen off as tolerated Plan The medical team will see the patient on a daily basis and manage the medical problems until she is discharged by the primary surgical team. Probable discharge tomorrow, October 28 Admission and Anticipated Discharge Date Admission Date: October 26, 2024 Subjective Alert and oriented. Case discussed with orthopedic spine. She is mildly hypoxic and requiring some supplemental oxygen probably from atelectasis postoperatively. Incentive spirometry has been ordered. Oxygen will be weaned off as tolerated. Probable discharge to home tomorrow, October 28 Review of Systems Review of Systems: Constitutionalno fever or chills ENTno blurred vision, no double vision, no epistaxis, no sore throat Respiratoryno cough, no wheezing, no shortness of breath Cardiacno palpitations, no chest pain, no syncope Karla nausea, vomiting, diarrhea, melena, hematochezia GUno urinary retention, no urinary incontinence, no dysuria, no hematuria Musculoskeletalno joint pain, no muscle tenderness. Postoperative lumbar discomfort as expected Skinno bruising, no rashes, no pruritus Neurono isolated weakness, no paresthesia, no weakness Psychno depression, no anxiety Physical Exam Physical Exam: General-alert and oriented x3, no fever, no chills HEENT-head atraumatic and normocephalic, pupils equal and reactive to light, extraocular muscles intact Neck-no lymphadenopathy or thyromegaly, trachea midline Chest-clear to auscultation. No rales, wheezing or rhonchi Cardiac-regular rate and rhythm, normal S1 and S2 Abdomen-normal bowel sounds, no hepatosplenomegaly Extremities-no cyanosis, clubbing, or edema. The patient is lying supine in bed and was not rolled over and her lumbar spine area was not examined Neuro-cranial nerves II through XII intact, motor and sensory function within normal limits, strength symmetrical, no focal deficits Psych-normal affect, normal mood Results & Data Results & Data Vital Signs (Past 12 Hours) Vital Signs Temp Pulse Resp BP Pulse Ox O2 Del Method O2 Flow Rate 10/27/24 07:00 36.4 C L 72 16 117/71 93 Nasal Cannula 2 10/27/24 03:11 36.4 C L 79 16 108/68 94 Nasal Cannula 2 10/26/24 23:20 36.5 C 82 18 102/66 94 Nasal Cannula 2 PG Care Time/CCT Total # of Minutes Spent Total Time Spent with Patient: Total time spent is greater than 50% in coordination of care (as documented) at patient's floor/unit and/or counseling patient: Coding Level of Care Code 64151 SUB INP/OBS CARE 235MIN Diagnoses Lumbar stenosis without neurogenic claudication M48.061 Hypertension I10 Depression F32.9 Dyslipidemia E78.5 Hypoxia R09.02
[2024-10-28 06:09] LABS: Hematocrit (blood only) 35.2 % (37.0-47.0); Hemoglobin 11.6 g/dl (12.0-16.0); Immature Granulocytes # (auto) 0.06 K/uL (0.01-0.20); Immature Granulocytes % (auto) 0.5 %; Mean Corpuscular Hemoglobin 30.7 pg (25.0-34.0); Mean Corpuscular Volume 93.1 fL (80.0-100.0); Platelet Count 257 K/uL (130-400); RDW Standard Deviation 45.0 fL (36.4-46.3); Red Blood Count 3.78 M/uL (4.20-5.40); White Blood Count 13.24 K/ul (4.8-10.8)
[2024-10-28 06:29] LABS: Anion Gap 5.0 (3-11); Blood Urea Nitrogen 16.0 mg/dl (6-23); Calcium 9.7 mg/dl (8.6-10.3); Carbon Dioxide 37.0 mmol/L (21-32); Chloride 99.0 mmol/L (98-107); Creatinine Clr Calc Pharmacy 99.1 ml/min; Glucose 93.0 mg/dl (70-99(Fasting)); Potassium 3.9 mmol/L (3.5-5.1); Sodium 141.0 mmol/L (136-145)
[2024-10-28 07:31] VITALS: BP 107/69; PULSE 61; TEMP 97.9; O2SAT 93
--- NOTE | 2024-10-28 09:57 | Hospitalist Progress Note ---
Date of Service October 28, 2024 Assessment & Plan (1) Lumbar stenosis without neurogenic claudication: Plan: The patient underwent elective L234 lumbar laminectomy on October [address] Latham. Postoperative day #2. Management per surgical team. Probable discharge to home today, October 28 (2) Hypertension: Plan: Currently stable on amlodipine and chlorthalidone (3) Depression: Plan: Currently stable on BuSpar and Effexor (4) Dyslipidemia: Plan: Currently stable on a atorvastatin (5) Hypoxia: Plan: Mild postoperative hypoxia probably due to residual pulmonary atelectasis has now resolved. She is on room air. Incentive spirometry has helped. Plan Medically stable for discharge home today, October 28 Admission and Anticipated Discharge Date Admission Date: October 26, 2024 Subjective Medically stable. She is now on room air. Probable discharge to home by primary service today, October 28 Review of Systems 2 Review of Systems: Constitutionalno fever or chills ENTno blurred vision, no double vision, no epistaxis, no sore throat Respiratoryno cough, no wheezing, no shortness of breath Cardiacno palpitations, no chest pain, no syncope Karla nausea, vomiting, diarrhea, melena, hematochezia GUno urinary retention, no urinary incontinence, no dysuria, no hematuria Musculoskeletalno joint pain, no muscle tenderness. Postoperative lumbar discomfort as expected Skinno bruising, no rashes, no pruritus Neurono isolated weakness, no paresthesia, no weakness Psychno depression, no anxiety Physical Exam 2 Physical Exam: General-alert and oriented x3, no fever, no chills HEENT-head atraumatic and normocephalic, pupils equal and reactive to light, extraocular muscles intact Neck-no lymphadenopathy or thyromegaly, trachea midline Chest-clear to auscultation. No rales, wheezing or rhonchi Cardiac-regular rate and rhythm, normal S1 and S2 Abdomen-normal bowel sounds, no hepatosplenomegaly Extremities-no cyanosis, clubbing, or edema. The patient is lying supine in bed and was not rolled over and her lumbar spine area was not examined Neuro-cranial nerves II through XII intact, motor and sensory function within normal limits, strength symmetrical, no focal deficits Psych-normal affect, normal mood Results & Data Results & Data Vital Signs (Past 12 Hours) Vital Signs Temp Pulse Resp BP Pulse Ox O2 Del Method 10/28/24 07:30 36.6 C 61 16 107/69 93 Room Air Laboratory Results 10/28/24 05:43 10/28/24 05:43 PG Care Time/CCT Total # of Minutes Spent Total Time Spent with Patient: Total time spent is greater than 50% in coordination of care (as documented) at patient's floor/unit and/or counseling patient: Coding Level of Care Code 55538 SUB INP/OBS CARE 2/35MIN Diagnoses Lumbar stenosis without neurogenic claudication M48.061 Hypertension I10 Depression F32.9 Dyslipidemia E78.5 Hypoxia R09.02
--- NOTE | 2024-10-28 10:50 | Orthopedic Progress Note ---
Date of Service October 28, 2024 Subjective Patient seen and examined, she notes overall she is doing well, no headaches or other issues she has been up and out of bed to the bathroom without issue. Incision site is unremarkable, dressing was removed new dressing was applied. Impression: Postop day 2 from L2-3 to L3-4 posterior lumbar decompression. Plan: Today discussed with patient, she will maintain a dressing for today and tomorrow she can begin showers on Tuesday, she will follow-up in 2 weeks. Review of Systems All systems reviewed & are unremarkable except as noted in HPI & below. Physical Exam . Results & Data Results & Data Laboratory Results . Diagnostic Findings . PG Care Time/CCT Total # of Minutes Spent Total Time Spent with Patient: Total time spent is greater than 50% in coordination of care (as documented) at patient's floor/unit and/or counseling patient: Coding Level of Care Code 44187 Post Operative Follow-Up
== END 2024-10-28 11:39 | disposition home or self-care (01) ==
LOC: 3E 08:56 → ASU 08:56